=== PATIENT | male | born 1995 | race Caucasian/White ===

== ENCOUNTER 2025-03-04 12:15 | Emergency (ER) | payer BC, SELFPAY ==
--- NOTE | 2025-03-04 12:19 | ED_ITS ---
HPI - URI/Sore Throat General Chief Complaint: Upper Respiratory Infection Stated Complaint: Sinus Infection Time Seen by Provider: 03/04/25 12:22 Source: patient and RN notes reviewed Mode of arrival: ambulatory Limitations: no limitations History of Present Illness HPI Narrative: 30-year-old male presents [facility] concerns a sinus infection. Symptoms started 6 weeks ago. Has had 2 rounds of antibiotics, doxycycline on February 10, clindamycin on February 24 as well as a Medrol Dosepak. Reports symptoms are not improving. Still feeling fatigued, congestion, ear discomfort, body aches. Onset (ago): week(s) (6) Treatments prior to arrival: cold medicine and antibiotics Related Data Home Medications ?Medication ?Instructions ?Recorded ?Confirmed ?Last Taken ?Type No Home Medications 03/04/25 03/04/25 U nknown History Allergies Allergy/AdvReac Type Severity Reaction Status Date / Time No Known Allergies Allergy Verified 03/04/25 12:18 Review of Systems Review of Systems: All systems reviewed & are unremarkable except as noted in HPI and below Constitutional: Constitutional: Reports as per HPI, Reports body ache(s), Reports fatigue and Denies fever(s) ENT: Reports as per HPI, Reports otalgia, Reports sinus pain and Reports sinus pressure Cardiovascular: Cardiovascular: Reports no additional cardiovascular complaints, Denies chest pain and Denies dyspnea Respiratory: Respiratory: Reports as per HPI, Denies chest congestion, Reports cough and Denies dyspnea Musculoskeletal: Musculoskeletal: Reports no additional musculoskeletal complaints Integumentary/Breasts: Skin/Breast: Reports system reviewed and no additional complaints, except as docu PMFSH Comments At the time of my signature, I reviewed and agree with the nursing past medical, surgical, social, and family history. There is no relevant family history pertinent to the patient complaint. Exam Const: General: cooperative, healthy appearing, comfortable, no acute distress, well developed, alert and well nourished Nutritional Appearance: well nourished Orientation/consciousness: patient oriented x3 Limitations: no limitations HENMT: Head: normal to inspection Ears: hearing grossly normal bilaterally, external ears normal, EAC's normal, mastoids normal, no periauricular adenopathy, TM abnormal with fluid behind the TM bilateral and other (scar noted to right TM ) Face/Nose/Sinus: Normal external nose present, Normal nares present and Normal nasal mucous membranes and turbinates present Mouth: Yes Normal oral and palatal mucosa present, Yes lip normal, Yes tongue normal and Yes moist mucous membranes Throat: posterior oropharynx normal, uvula midline, postnasal drainage and no uvular edema Eyes: General: appearance normal, both eyes and all related structures Alignment and Position: alignment normal Neck: Neck: normal visual inspection, full ROM, no lymphadenopathy and no meningeal signs Chest: Chest palpation & inspection: normal inspection of the chest Resp: Effort & Inspection: normal respiratory effort and able to speak in complete sentences Auscultation: clear to auscultation bilaterally, no crackles, no rales, no rhonchi and no wheezes Cardio: Rate: regular rate Skin: General skin exam: normal color and no rashes or lesions noted Neuro: General: patient oriented x3, gait normal, moves all extremities and no meningeal signs Cognition (Neuro): normal cognition Speech: normal speech Gait exam (Neuro): Normal gait present Extrem: General: normal to inspection, full ROM, capillary refill normal and normal gait Psych: Appearance: grossly normal and well kempt Mental Status: mental status grossly normal Speech and movement: Normal speech and movement present and Clear speech present Affect: normal affect Attitude: cooperative Course Course Level of Care: [facility] Visit Vital Signs Vital signs: Vital Signs Temperature 99.3 F 03/04/25 12:24 Pulse Rate 57 L 03/04/25 12:24 Respiratory Rate 18 03/04/25 12:24 Blood Pressure 115/65 03/04/25 12:24 Pulse Oximetry 100 03/04/25 12:24 Oxygen Delivery Room Air 03/04/25 12:24 Temperature 99.3 F 03/04/25 12:24 Pulse Rate 57 L 03/04/25 12:24 Respiratory Rate 18 03/04/25 12:24 Blood Pressure 115/65 03/04/25 12:24 Pulse Oximetry 100 03/04/25 12:24 Oxygen Delivery Room Air 03/04/25 12:24 Reviewed MDM - URI/Sore Throat MDM Narrative Medical decision making narrative: Patient sitting comfortably in exam room. Patient is nontoxic vitals are stable. Patient presents with URI symptoms cough, congestion, fatigue. Has had 2 rounds of antibiotics with no improvement. Discussed going to the ER for evaluation, stressed importance of following up, ENT provider given, primary care provider phone numbers given. No acute findings noted on exam. Discussed possibly a side effect of the antibiotics increasing fatigue generalized not feeling well. Stressed importance of treating for allergies, congestion, cough. Reinforce that his symptoms get worse further evaluation is needed and the next step would be the emergency room which patient verbalized understand Discharge instructions reviewed with patient, as well as provided in writing per nursing staff. The instructions also include specific and strict return/GO TO THE ER as well as f/u information. All questions have been answered, and the patient deny any further questions with discharge and discharge plan. Some parts of this dictation were generated by voice recognition software and may contain typographical and/or grammatical inaccuracies. Differential Diagnosis Differential diagnosis: Likely upper respiratory infection, otitis media, sinusitis, viral infection, bronchitis, influenza, pharyngitis and other (Seasonal allergies) Critical Care Time Critical Care Time Critical Care Time: No Discharge Plan Discharge Clinical Impression: Sinusitis Qualifiers: Sinusitis location: pansinusitis Chronicity: unspecified Qualified Code(s): J32.4 - Chronic pansinusitis Patient Disposition: Home Condition: Stable Instructions: Antibiotic Form, Sinusitis (ED) Additional Instructions: If you are having a hard time finding a physician please call our [facility] liaison at [phone]. Finish the clindamycin as already prescribed It is very important to treat your symptoms. Drink plenty of water, Gatorade, Pedialyte, ice pops or Jell-O. -Alternate Tylenol and Motrin per package directions for fever or pain. You can alternate every 4 hours -Antihistamine medication such as Zyrtec/Claritin/Lou during the day can help improve symptoms. -doing daily nasal irrigations can help relieve pressure your sinuses. Things like a Neti pot -Use Flonase twice a day for 5 days then daily to help reduce the inflammation and dry up your sinuses. -You can also use Mucinex. Be sure to drink plenty of water with this medication at least 8 ounces with every dose and it is important to drink 8 to 10 glasses of water per day. Water is a natural decongestant -Eat and drink things that are easy to swallow, like tea or soup, or popsicles. -Oral rinses such as: Salt water gargles and/or may use topical anesthetic (eg. Chloraseptic spray) or lozenges to relieve dryness or throat pain). -Frequent hand washing or hand ross lift operator is one of the best ways to prevent spread of infection. -Using a vaporizer or humidifier at night will also help thin secretions and help with coughing up phlegm. -Follow up with primary care provider in 7-10 days if condition is not improving - For new or worsening symptoms go directly to the nearest ER Patient Language: Bel[place] Prescriptions: No Action No Home Medications Follow-up/Referrals: Jackson Miranda MD [Physician, Ear, Nose, Throat] - 3 Days Clinical Impression: Sinusitis UNKNOWN,DOCTOR [Non-Staff] Stand Alone Forms: Work/School Release IP Time of Disposition: 12:35
[2025-03-04 12:24] VITALS: BP 115/65; PULSE 57; RESP 18; TEMP 37.4; O2SAT 100
--- OUTSIDE RECORDS SUMMARY | 2025-03-04 13:57 | XMS_ITS | Clinical Summary ---
Author Organization [facility] Address [address] [place] [address] Care Team Providers Care Recovery Agent Name Role Phone Unavailable Primary Care Provider Unavailabl e Source Comments [facility],non-owned Affiliates and Associated Physician Practices is amultiple site organization consisting of ambulatory clinics and hospital sitesin [place], [place], [place] and [place]. This disclosure is being madepursuant to the Care Everywhere program and may not contain all information available regarding this patient. Last updated 18.[facility] Social History Tobacco Use Types Packs/Day Years Used Date Smoking Tobacco: Never Assessed Sex and Gender Information Value Date Recorded Sex Assigned at Not on file Legal Sex Male 7:05 AM CDT Gender Identity Not on file Sexual Orientation Not on file Plan of Treatment Health Maintenance Due Date Last Done Comments HIV SCREENING 2009 HEPATITIS C SCREENING 02/27/2012 DTAP/TDAP/TD VACCINES (1 - Tdap) 2013 HEPATITIS B VACCINE (1 of 3 - 19+ 3-dose series) 2013 HPV VACCINE (1 - 3-dose SCDM series) 2021 DEPRESSION SCREENING 05/22/2024 COVID-19 VACCINE (1 - 2023-2 5 season) 2025 INFLUENZA VACCINE (#1) 2025 ZOSTER VACCINE (1 of 2) 2044 HIB VACCINE Aged Out No longer eligi ble based on patient's age to complete this topic MENINGOCOCCAL (Group B) VACC INE SHARED DECISION-MAKING Aged Out No longer eligibl e based on patient's age to complete this topic MENINGOCOCCAL GROUPS A/C/Y/W VACCINE Aged Out No longer eligible b ased on patient's age to complete this topic PNEUMOCOCCAL VACCINE Aged Out No long er eligible based on patient's age to complete this topic
--- OUTSIDE RECORDS SUMMARY | 2025-03-04 13:57 | XMS_ITS | Clinical Summary ---
Author Organization [facility] Address [address] [place] [address] Phone Care Team Providers Care Curing Oven Attendant Name Role Phone Provider, None Primary Care Provider Unavailabl e Allergies Active Allergy Reactions Criticality Noted Date Comments Amoxicillin Rash 11/23/2023 Medications polyethylene glycol (MiraLax) 17 GM/SCOOP Powder Take 17 g by mouth daily. 17 g = 1 scoop. Dissolve in 4 -8 oz of water or other liquid. 225 g 11/23/2023 Active Social History Tobacco Use Types Packs/Day Years Used Date Smoking Tobacco: Never Assessed Sex and Gender Information Value Date Recorded Sex Assigned at Not on file Legal Sex Male 2:00 PM CDT Gender Identity Not on file Sexual Orientation Not on file Last Filed Vital Signs Vital Sign Reading Time Taken Comments Blood Pressure 133/71 11/23/2023 4:00 PM CDT Pulse 57 11/23/2023 4:00 PM CDT Temperature 36.7 C (98 F) 11/23/2023 2:05 PM CDT Respiratory Rate 15 11/23/2023 2:05 PM CDT Oxygen Saturation 96% 11/23/2023 4:00 PM CDT Inhaled Oxygen Concentration - - Weight 93 kg (205 lb) 11/23/2023 2:05 PM CDT Height 177.8 cm (5' 10) 11/23/2023 2:05 PM CDT Body Mass Index 29.41 11/23/2023 2:05 PM CDT Plan of Treatment Health Maintenance Due Date Last Done Comments Hepatitis C Virus (HCV) Screening 1994 TdaP Immunization 1994 Hepatitis B Immunization (1 of 3 - 19+ 3-dose series) 2013 Human Papillomavirus (HPV) Immunization (1 - 3-dose SCDM series) 2021 Influenza Immunization (#1) 2025 02/25/2020 SARS-COV-2 Immunization ( - 2024- season) 2025 Respiratory Syncytial Virus (RSV) Immunization (Adult) (1 - 1-dose 75+ series) 2069 Meningococcal Immunization (ACWY) Aged Out No longer eligible based on patient's age to complete this topic Pneumococcal Immunization Combined Aged Out No longer eligible based on patient's age to complete this topic Rotavirus Immunization Aged Out No lo nger eligible based on patient's age to complete this topic Insurance Care Teams Curing Oven Attendant Relationship Specialty Start Date End Date Provider, None [place] PCP - General 11/23/23
== END 2025-03-04 12:38 | disposition home or self-care (01) ==
PROVIDERS: Emergency Provider Nurse Practitioner
DX: J32.4 Chronic pansinusitis (principal)
CPT/HCPCS: 99202; G0463